=== PATIENT | female | born 1945 | race Caucasian/White ===

== ENCOUNTER 2018-09-14 16:54 | Inpatient (IN) ==
[2018-09-14] MEDS ORDERED: SODIUM CHLORIDE 0.9% 500 ML IV SCH (17:15)
--- NOTE | 2018-09-14 17:46 | Emergency Department Note ---
Entered by Bina Arce acting as a scribe for Hill Mistry MD History of Present Illness General Chief complaint: Referred by Doctor Stated complaint: DR SENT OVER, NEEDS EKG Time Seen by Provider: 09/14/18 17:01 Source: patient and family Mode of arrival: ambulatory Limitations: no limitations History of Present Illness Onset (ago): day(s) 3 Location: head Radiation: non-radiation Pain Consistency: + constant Maximum Pain Intensity: 2 Relieved By: + none Exacerbated By: + none Associated symptoms: + other (-urinary symptoms, -melena, -hematochezia, - tinnitus); no weakness (or numbness) Treatments prior to arrival: none The patient is a 73 year old male who presents to the ED with complaints of weakness. She is accompanied by her daughter who is visiting the area for the oliday. She states she has no appetite and feels nauseated. She has not vomited. Her daughter took her to an urgent care clinic earlier today and the patient was referred here to the ED for a fast pulse and dizziness. She denies any recent falls or trauma. She denies any urinary symptoms, melena or hematochezia. Her daughter states she has been more confused recently, but the patient denies this. The patient denies any numbness, weakness or tinnitus. The daughter denies any changes in the patients home. Home Medications Home Medications Medication Instructions Recorded Confirmed Type calcium carbonate [Tums] 200 mg PO TID PRN 09/14/18 09/14/18 History ketorolac 1 drp OPR BID 09/14/18 09/14/18 History multivitamin 1 tab PO QAM 09/14/18 09/14/18 History naproxen sodium [Aleve] 220 mg PO BID PRN 09/14/18 09/14/18 History prednisolone acetate 1 drp OPHTHALMIC (EYE) .QID UD 09/14/18 09/14/18 History Allergies Allergy/AdvReac Type Severity Reaction Status Date / Time Sulfa (Sulfonamide Allergy Unknown Verified 09/14/18 17:37 Antibiotics) Past Med/Surg History Surgical History History of cataract removal with insertion of prosthetic lens Social History Feels Safe at Home: Yes Smoking Status: Current every day smoker Review of Systems See HPI for pertinent positives & negatives. and A total of 10 systems reviewed and were otherwise negative Physical Exam Vital Signs Vital Signs - 24 hr 09/14/18 16:56 09/14/18 17:30 09/14/18 17:38 Temperature 36.8 C Temperature Source Oral Sepsis Recent Fever Within 48 Hours No Sepsis Action Taken by Nursing No Action Required Pulse Rate 112 H 111 H 111 H Pulse Rate from SpO2 Sensor 102 H 98 H Pulse Rhythm Respiratory Rate 18 24 24 Blood Pressure 115/70 142/75 H Blood Pressure Mean 85 97 Pulse Oximetry 96 97 97 Oxygen Delivery Method Room Air 09/14/18 17:49 09/14/18 18:00 09/14/18 18:01 Temperature Temperature Source Sepsis Recent Fever Within 48 Hours Sepsis Action Taken by Nursing Pulse Rate 103 H 103 H 105 H Pulse Rate from SpO2 Sensor 105 H 104 H Pulse Rhythm Regular Respiratory Rate 20 22 21 Blood Pressure 139/72 Blood Pressure Mean 94 Pulse Oximetry 95 96 93 Oxygen Delivery Method Room Air 09/14/18 18:30 09/14/18 18:31 09/14/18 19:00 Temperature Temperature Source Sepsis Recent Fever Within 48 Hours Sepsis Action Taken by Nursing Pulse Rate 107 H 105 H 107 H Pulse Rate from SpO2 Sensor 109 H 105 H 107 H Pulse Rhythm Respiratory Rate 31 H 24 22 Blood Pressure 144/84 H 175/97 H Blood Pressure Mean 104 123 Pulse Oximetry 95 96 97 Oxygen Delivery Method 09/14/18 19:01 09/14/18 19:30 09/14/18 19:31 Temperature Temperature Source Sepsis Recent Fever Within 48 Hours Sepsis Action Taken by Nursing Pulse Rate 106 H 107 H 109 H Pulse Rate from SpO2 Sensor 107 H 108 H 107 H Pulse Rhythm Respiratory Rate 31 H 24 25 H Blood Pressure 171/97 H Blood Pressure Mean 121 Pulse Oximetry 95 96 94 Oxygen Delivery Method General: Non-ill appearing slender older female in no acute distress. HEENT: Normal cephalic atraumatic. Pupils are equal round and reactive to light. Extraocular movements are intact. Oropharynx is pink with moist mucous membranes. No swelling of the mouth lips or tongue. Neck: Supple with a midline trachea. No meningeal signs or stiffness, no JVD or bruits. No Stridor. Chest: Clear to auscultation bilaterally. No wheezes or rhonchi. No increased work of breathing. Heart: Mildly tachycardic heart rate, regular rhythm. Abdomen: Soft nontender, nondistended without rebound guarding or rigidity. Extremities: No cyanosis clubbing or edema. No calf tenderness or asymmetry Spine/Back. Non tender to palpation. No CVA tenderness Skin: Good turgor without rashes. Neurologic exam: Patient is awake, alert and oriented x 3. Cranial nerves two through 12 are intact. Motor and sensation are intact and symmetrical throughout. Course 1704: The patient was evaluated in room A2 and a complete history and physical were performed. 1819: I reevaluated the patient. I discussed her results and my recommendation we do a CT scan and she is agreeable with the plan. 1904: I reevaluated the patient. She denies any fever or urinary symptoms. I added a 2nd line on the patient. I discussed my recommendation she remain in the hospital for further evaluation and management and she verbalized complete understanding and agreement. 1913: I discussed the patients case with [facility]. The patient will be further evaluated. Consultations Consultation #1: I discussed the patients [facility] The patient will be further evaluated. Time: 19:14 Administered Medications Discontinued Medications Sodium Chloride (Nss) 500 mls @ 999 mls/hr IV .Q31M LESLY Stop: 09/14/18 17:45 Last Infusion: 09/14/18 18:17 Dose: 0 mls/hr Documented by: [id number] Admin: 09/14/18 17:44 Dose: 999 mls/hr Documented by: [id number] Sodium Chloride (Nss 1000ml) 500 mls @ 999 mls/hr IV .Q31M ONE Stop: 09/14/18 19:01 Last Infusion: 09/14/18 19:12 Dose: 0 mls/hr Documented by: [id number] Admin: 09/14/18 18:38 Dose: 999 mls/hr Documented by: [id number] Medical Decision Making Differential Diagnosis Differential Diagnoses considered include arrhythmia, electrolyte or metabolic abnormality, dehydration, cardiac disease, neurologic disease, PE and infection. Medical Records Attestation: I reviewed the patient's medical records. Home Medications Current Medication List: was personally reviewed by me Laboratory Data Attestation: I reviewed the patient's lab results. Result diagrams: 09/14/18 17:49 09/14/18 17:49 Lab Results 09/14/18 09/14/18 09/14/18 Range/Units 17:49 17:49 17:49 WBC 24.00 H (4.8-10.8) K/uL RBC 4.10 L (4.2-5.4) M/uL Hgb 12.8 (12.0-16.0) g/dL Hct 36.1 L (37-47) % MCV 88.0 (80-100) fL MCH 31.2 (25-34) pg MCHC 35.5 (32-36) g/dL RDW Std Deviation 45.8 (36.4-46.3) fL RDW Coeff of Amanda 14.1 (11.5-14.5) % Plt Count (130-400) K/uL Immature Gran % (Auto) 0.9 % Neut % (Auto) 90.2 % Lymph % (Auto) 2.7 % [place] % (Auto) 6.1 % Eos % (Auto) 0.0 % Baso % (Auto) 0.1 % Immature Gran # (Auto) 0.21 H (0.00-0.02) K/uL Neut # (Auto) 21.66 H (1.4-6.5) K/uL Lymph # (Auto) 0.64 L (1.2-3.4) K/uL [place] # (Auto) 1.46 H (0.11-0.59) K/uL Eos # (Auto) 0.00 (0-0.5) K/uL Baso # (Auto) 0.03 (0-0.2) K/uL D-Dimer 1170 H* (0-500) ug/L FEU Sodium 128 L (136-145) mmol/L Potassium 3.5 (3.5-5.1) mmol/L Chloride 93 L (98-107) mmol/L Carbon Dioxide 26 (21-32) mmol/L Anion Gap 9.0 (3-11) BUN 52 H (7-18) mg/dl Creatinine 1.73 H (0.6-1.2) mg/dl Est Cr Clr Drug Dosing Not Reportable Est GFR ( Amer) 33.8 Est GFR (Non-Af Amer) 29.2 BUN/Creatinine Ratio 29.9 H (10-20) Glucose 82 (70-99) mg/dl Calcium 11.0 H (8.5-10.1) mg/dl Total Bilirubin 1.2 H (0.2-1) mg/dl AST 26 (15-37) U/L ALT 31 (12-78) U/L Alkaline Phosphatase 248 H (45-117) U/L Troponin I 0.250 H* (0-0.045) ng/ml Total Protein 6.5 (6.4-8.2) gm/dl Albumin 2.1 L (3.4-5.0) gm/dl Globulin 4.4 H (2.5-4.0) gm/dl Albumin/Globulin Ratio 0.5 L (0.9-2) Lipase 66 L (73-393) U/L TSH 0.818 (0.300-4.500) uIu/ml Urine Color Urine Appearance (Clear) Urine pH (4.5-7.5) Ur Specific [place] (1.000-1.030) Urine Protein (Negative) Urine Glucose (UA) (Negative) Urine Ketones (Negative) Urine Blood (Negative) Urine Nitrite (Negative) Urine Bilirubin (Negative) Urine Urobilinogen (Negative) Ur Leukocyte Esterase (Negative) Urine WBC (Auto) (0-5) /hpf Urine RBC (Auto) (0-4) /hpf U Hyaline Cast (Auto) (0-5) /lpf U Epithel Cells (Auto) (0-5) /lpf Urine Bacteria (Auto) (Negative) 09/14/18 Range/Units 19:17 WBC (4.8-10.8) K/uL RBC (4.2-5.4) M/uL Hgb (12.0-16.0) g/dL Hct (37-47) % MCV (80-100) fL MCH (25-34) pg MCHC (32-36) g/dL RDW Std Deviation (36.4-46.3) fL RDW Coeff of Amanda (11.5-14.5) % Plt Count (130-400) K/uL Immature Gran % (Auto) % Neut % (Auto) % Lymph % (Auto) % [place] % (Auto) % Eos % (Auto) % Baso % (Auto) % Immature Gran # (Auto) (0.00-0.02) K/uL Neut # (Auto) (1.4-6.5) K/uL Lymph # (Auto) (1.2-3.4) K/uL [place] # (Auto) (0.11-0.59) K/uL Eos # (Auto) (0-0.5) K/uL Baso # (Auto) (0-0.2) K/uL D-Dimer (0-500) ug/L FEU Sodium (136-145) mmol/L Potassium (3.5-5.1) mmol/L Chloride (98-107) mmol/L Carbon Dioxide (21-32) mmol/L Anion Gap (3-11) BUN (7-18) mg/dl Creatinine (0.6-1.2) mg/dl Est Cr Clr Drug Dosing Est GFR ( Amer) Est GFR (Non-Af Amer) BUN/Creatinine Ratio (10-20) Glucose (70-99) mg/dl Calcium (8.5-10.1) mg/dl Total Bilirubin (0.2-1) mg/dl AST (15-37) U/L ALT (12-78) U/L Alkaline Phosphatase (45-117) U/L Troponin I (0-0.045) ng/ml Total Protein (6.4-8.2) gm/dl Albumin (3.4-5.0) gm/dl Globulin (2.5-4.0) gm/dl Albumin/Globulin Ratio (0.9-2) Lipase (73-393) U/L TSH (0.300-4.500) uIu/ml Urine Color Yellow Urine Appearance Turbid A (Clear) Urine pH 5.5 (4.5-7.5) Ur Specific [place] 1.014 (1.000-1.030) Urine Protein 1+ H (Negative) Urine Glucose (UA) Negative (Negative) Urine Ketones Trace H (Negative) Urine Blood 3+ H (Negative) Urine Nitrite Positive A (Negative) Urine Bilirubin Negative (Negative) Urine Urobilinogen Negative (Negative) Ur Leukocyte Esterase 3+ H (Negative) Urine WBC (Auto) >30 H (0-5) /hpf Urine RBC (Auto) >30 H (0-4) /hpf U Hyaline Cast (Auto) 5-10 H (0-5) /lpf U Epithel Cells (Auto) >30 H (0-5) /lpf Urine Bacteria (Auto) 1+ H (Negative) Imaging Data Radiologist's Impression: Radiology results as stated below per my review and the radiologist's interpretation: XR chest 1V portable HISTORY: 73 years-old Female Chest Pain acute atypical chest pain COMPARISON: None available TECHNIQUE: Portable AP view of the chest FINDINGS: Cardiomediastinal and hilar silhouettes are within normal limits. Calcification of the thoracic aortic arch. Subsegmental left greater then right bibasilar opacities. No pneumothorax, pleural effusion or overt pulmonary edema. Degenerative changes of the shoulders and spine. Suggested small hiatal hernia. IMPRESSION: Left greater than right subsegmental bibasilar opacities favor atelectasis. The above report was generated using voice recognition software. It may contain grammatical, syntax or spelling errors. Electronically signed by: Darin Gan M.D. 09/14/2018 6:12 PM ECG Data Attestation: I personally reviewed and interpreted this ECG as follows: Indication: weakness Rate (beats per minute): 108 Rhythm: sinus tachycardia Findings: no acute ischemic change and no ectopy Comparison ECG Date: no prior available Blood Pressure Blood Pressure Findings: Elevated blood pressure Blood Pressure Disposition: further management by hospitalist Head Trauma GCS Score: 15 MDM Narrative This patient comes in as described above. She was placed in room A2. She was sent over from the urgent care center after having a rapid heart rate in the low 100s. She has been not feeling hungry and may have had some dizziness. Her daughter thinks she may be mildly confused or forgetful at times. She has had no fall or trauma she voices no complaints. She had no chest pain shortness of breath or syncope. IV access established EKG multiple blood testing was obtained she was hydrated with a normal saline bolus. Her EKG shows sinus tachycardia 108 there is no ischemic changes or ectopy seen. Reassessed freq uently and is remained stable. Her d-dimer did come back elevated at just over thousand. In light of that I did order a CTA of the chest however her BUN/creatinine subsequently came back significantly elevated at 52 and 1.7. She had been hydrated with a 500 cc normal saline bolus I gave her additional 500 cc normal saline bolus. Additionally her troponin came back elevated 0.24 and her white count but came back elevated 24,000. The white count was certainly unexpected finding she has nothing to suggest infection on exam or by history she denies urinary symptoms, abdominal pain, cough, joint aches, skin lesions, GI symptoms. In light of the elevated white count, I did have blood cultures as well as a lactic acid and we establish a second IV. I canceled the CTA of her chest. Her sodium was also low at 128. I do not have a baseline for comparison. I did tell him to keep the CAT scan of her head. Again despite all these abnormalities, she looks great but I do think she needs to come in the hospital to further evaluate this. I am also waiting for her to give a urine sample as well to rule out urinary symptoms. I have consulted Dr. Feldman to see her in the ER for these measures. Impression & Plan Dizziness, Elevated troponin, Renal insufficiency, Hyponatremia Discharge Plan Visit Data Chief Complaint: Referred by Doctor Stated Complaint: DR SENT OVER, NEEDS EKG ED Provider: Hill Mistry Discharge Problem: Dizziness, Elevated troponin, Renal insufficiency, Hyponatremia Patient Disposition: Being Evaluated by Hospitalist Forms Stand Alone Forms: My [facility] Prescriptions Prescriptions: No Action multivitamin Tablet 1 tab PO QAM RF: 0 ketorolac 0.5 % Drops 1 drp OPR BID RF: 0 prednisolone acetate 1 % Drops,Suspension 1 drp OPHTHALMIC (EYE) .QID UD RF: 0 naproxen sodium [Aleve] 220 mg Tablet 220 mg PO BID PRN (Reason: Pain) RF: 0 calcium carbonate [Tums] 200 mg calcium (500 mg) Tablet,Chewable 200 mg PO TID PRN (Reason: Gi Upset) RF: 0 Referrals Referrals: Ruslan Barr [Primary Care Provider] - The scribe's documentation has been prepared under my direction and personally reviewed by me in its entirety. I confirm that the note above accurately reflects all work, treatment, procedures, and medical decision making performed by me.
--- NOTE | 2018-09-14 18:15 | XRay Report ---
XR chest 1V portable HISTORY: 73 years-old Female Chest Pain acute atypical chest pain COMPARISON: None available TECHNIQUE: Portable AP view of the chest FINDINGS: Cardiomediastinal and hilar silhouettes are within normal limits. Calcification of the thoracic aorti c arch. Subsegmental left greater then right bibasilar opacities. No pneumothorax, pleural effusion o r overt pulmonary edema. Degenerative changes of the shoulders and spine. Suggested small hiatal luna ia. IMPRESSION: Left greater than right subsegmental bibasilar opacities favor atelectasis. The above report was generated using voice recognition software. It may contain grammatical, syntax o r spelling errors. Electronically signed by: Darin Gan M.D. 09/14/2018 6:12 PM
[2018-09-14 18:21] LABS: D Dimer 1170 ug/L FEU (0-500)
[2018-09-14 18:25] LABS: Alanine Aminotransferase 31 U/L (12-78); Albumin Level 2.1 gm/dl (3.4-5.0); Aspartate Aminotransferase 26 U/L (15-37); BUN Creatinine Ratio 29.9 (10-20); Blood Urea Nitrogen 52 mg/dl (7-18); Carbon Dioxide 26 mmol/L (21-32); Chloride 93 mmol/L (98-107); Est GFR (African American) 33.8; Est GFR (Non-African American) 29.2; Glucose 82 mg/dl (70-99); Potassium 3.5 mmol/L (3.5-5.1); Sodium 128 mmol/L (136-145)
[2018-09-14] MEDS ORDERED: SODIUM CHLORIDE 0.9% 1000ML 500 ML IV ONE (18:31)
[2018-09-14 18:41] LABS: Hematocrit (blood only) 36.1 % (37-47); Hemoglobin 12.8 g/dL (12.0-16.0); Mean Corpuscular Hgb Conc 35.5 g/dL (32-36); RDW Coefficient of Variation 14.1 % (11.5-14.5); RDW Standard Deviation 45.8 fL (36.4-46.3)
[2018-09-14 18:42] LABS: Basophils # (auto) 0.03 K/uL (0-0.2); Basophils % (auto) 0.1 %; Immature Granulocytes # (auto) 0.21 K/uL (0.00-0.02); Immature Granulocytes % (auto) 0.9 %; Lymphocytes # (auto) 0.64 K/uL (1.2-3.4); Lymphocytes % (auto) 2.7 %; Monocytes # (auto) 1.46 K/uL (0.11-0.59); Monocytes % (auto) 6.1 %; Neutrophils # (auto) 21.66 K/uL (1.4-6.5); Neutrophils % (auto) 90.2 %
[2018-09-14 18:46] LABS: Albumin Globulin Ratio 0.5 (0.9-2); Alkaline Phosphatase 248 U/L (45-117); Bilirubin,Total 1.2 mg/dl (0.2-1); Globulin 4.4 gm/dl (2.5-4.0); Total Protein 6.5 gm/dl (6.4-8.2)
[2018-09-14 19:26] LABS: Appearance Urine Turbid (Clear); Bacteria Urine Automated 1+ (Negative); Bilirubin Urine Negative (Negative); Blood Urine 3+ (Negative); Color Urine Yellow; Epithelial Cell Urine Auto >30 /lpf (0-5); Glucose Urine UA Negative (Negative); Ketones Urine Trace (Negative); Leukocyte Esterase Urine 3+ (Negative); Nitrite Urine Positive (Negative); Protein Urine 1+ (Negative); RBC Urine Automated >30 /hpf (0-4); Specific Gravity Urine 1.014 (1.000-1.030); Urobilinogen Urine Negative (Negative); WBC Urine Automated >30 /hpf (0-5); pH Urine 5.5 (4.5-7.5)
[2018-09-14] MEDS ORDERED: POTASSIUM CHLORIDE 20 MEQ TABCR PO STA (19:29)
[2018-09-14 19:53] LABS: Partial Thromboplastin Ratio 1.2; Partial Thromboplastin Time 31.2 Seconds (21.0-31.0)
--- NOTE | 2018-09-14 20:11 | History & Physical Report ---
Date of Service September 14, 2018 Assessment & Plan (1) Sepsis: Secondary to complicated UTI Hyponatremia, hypercalcemia, ARF secondary to clinical dehydration Situational hypertension d-dimer, troponin elevation secondary to sepsis Ongoing tobacco abuse Medical telemetry given troponin elevation Cultures, IV Cefepime Careful correction of sodium, hyponatremia work-up Monitor creatinine response to IV fluids Trend troponin, TTE with progression Monitor BP, may need initiation of maintenance agent if with persistent elevation, possible long-standing disease given possible LVH on EKG Nicotine patch DVT prophylaxis. Heparin subcu Full code Patient's daughter requesting updates from providers. Ms. Scarlett Bennett, contact #[phone]. History of Present Illness Primary Care Provider: Ruslan Barr History obtained from patient, family, and records. Medical history significant for ongoing tobacco abuse. Last few days patient noted nausea, poor appetite, dysuria symptoms without abdominal/flank pain. No fever, no chills. No chest pain, S OB, leg swelling. Little confused than usual as per patient's daughter visiting from [place]. Patient noted dizziness symptoms. Patient noted to be tachycardic at the urgent care center. Patient subsequently directed to the ER. 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 Allergies Allergy/AdvReac Type Severity Reaction Status Date / Time Sulfa (Sulfonamide Allergy Unknown Verified 09/14/18 17:37 Antibiotics) Home Medications Home Medications Medication Instructions Recorded Confirmed Type calcium carbonate [Tums] 200 mg PO TID PRN 09/14/18 09/14/18 History ketorolac 1 drp OPR BID 09/14/18 09/14/18 History multivitamin 1 tab PO QAM 09/14/18 09/14/18 History naproxen sodium [Aleve] 220 mg PO BID PRN 09/14/18 09/14/18 History prednisolone acetate 1 drp OPHTHALMIC (EYE) .QID UD 09/14/18 09/14/18 History Past Med/Surg History Surgical History History of cataract removal with insertion of prosthetic lens Social History Preferred Language: Polish Communication Ability: Effective Time Study Analyst Required: No Beliefs That Will Affect Care: None Current Living Situation: Spouse Other Information That Helps Us Care for You: No Feels Safe at Home: Yes Safety Concerns: Feels Safe At This Time Smoking Status: Current every day smoker Tobacco Type: cigarettes Cigarettes Per Day: 4-5 Do You Dip or Chew Tobacco: No Second Hand Exposure: Yes Tobacco Cessation Education Requested by Patient: Yes Hx Alcohol Use: Yes Hx Substance Use: No Review of Systems Review of Systems: As per HPI, intentional weight loss, all 10 systems reviewed, all other ROS negative Physical Exam Physical Exam: GENERAL: Comfortable, looks younger for stated age, no respiratory distress SKIN: Normal color, warm HEENT: [place] palpebral conjunctivae, no ptosis, dry buccal mucosa NECK : Supple, no tenderness CHEST : CTA, no tenderness HEART : Tachycardic, no obvious murmurs ABDOMEN: Some distention, nontender EXTREMITIES : No LE swelling/tenderness, no other conspicuous deformities noted NEUROLOGIC : Coherent, no facial asymmetry, no other gross focality Results & Data Vital Signs (Past 12 Hours) Vital Signs Temp Pulse Resp BP Pulse Ox 09/14/18 19:31 109 H 25 H 94 09/14/18 19:30 107 H 24 171/97 H 96 09/14/18 19:01 106 H 31 H 95 09/14/18 19:00 107 H 22 175/97 H 97 09/14/18 18:31 105 H 24 96 09/14/18 18:30 107 H 31 H 144/84 H 95 09/14/18 18:01 105 H 21 93 09/14/18 18:00 103 H 22 139/72 96 09/14/18 17:49 103 H 20 95 09/14/18 17:38 111 H 24 97 09/14/18 17:30 111 H 24 142/75 H 97 09/14/18 16:56 36.8 C 112 H 18 115/70 96 Laboratory Results Laboratory Results WBC 24.00 K/uL (4.8-10.8) H 09/14/18 17:49 RBC 4.10 M/uL (4.2-5.4) L 09/14/18 17:49 Hgb 12.8 g/dL (12.0-16.0) 09/14/18 17:49 Hct 36.1 % (37-47) L 09/14/18 17:49 MCV 88.0 fL (80-100) 09/14/18 17:49 MCH 31.2 pg (25-34) 09/14/18 17:49 MCHC 35.5 g/dL (32-36) 09/14/18 17:49 RDW Std Deviation 45.8 fL (36.4-46.3) 09/14/18 17:49 RDW Coeff of Amanda 14.1 % (11.5-14.5) 09/14/18 17:49 Plt Count K/uL (130-400) 09/14/18 17:49 Immature Gran % (Auto) 0.9 % 09/14/18 17:49 Neut % (Auto) 90.2 % 09/14/18 17:49 Lymph % (Auto) 2.7 % 09/14/18 17:49 [place] % (Auto) 6.1 % 09/14/18 17:49 Eos % (Auto) 0.0 % 09/14/18 17:49 Baso % (Auto) 0.1 % 09/14/18 17:49 Immature Gran # (Auto) 0.21 K/uL (0.00-0.02) H 09/14/18 17:49 Neut # (Auto) 21.66 K/uL (1.4-6.5) H 09/14/18 17:49 Lymph # (Auto) 0.64 K/uL (1.2-3.4) L 09/14/18 17:49 [place] # (Auto) 1.46 K/uL (0.11-0.59) H 09/14/18 17:49 Eos # (Auto) 0.00 K/uL (0-0.5) 09/14/18 17:49 Baso # (Auto) 0.03 K/uL (0-0.2) 09/14/18 17:49 APTT 31.2 Seconds (21.0-31.0) H 09/14/18 17:49 PTT Ratio 1.2 09/14/18 17:49 D-Dimer 1170 ug/L FEU (0-500) H* 09/14/18 17:49 Sodium 128 mmol/L (136-145) L 09/14/18 17:49 Potassium 3.5 mmol/L (3.5-5.1) 09/14/18 17:49 Chloride 93 mmol/L (98-107) L 09/14/18 17:49 Carbon Dioxide 26 mmol/L (21-32) 09/14/18 17:49 Anion Gap 9.0 (3-11) 09/14/18 17:49 BUN 52 mg/dl (7-18) H 09/14/18 17:49 Creatinine 1.73 mg/dl (0.6-1.2) H 09/14/18 17:49 Est Cr Clr Drug Dosing Not Reportable 09/14/18 17:49 Est GFR ( Amer) 33.8 09/14/18 17:49 Est GFR (Non-Af Amer) 29.2 09/14/18 17:49 BUN/Creatinine Ratio 29.9 (10-20) H 09/14/18 17:49 Glucose 82 mg/dl (70-99) 09/14/18 17:49 Osmolality 280 mOsm/kg (280-300) 09/14/18 17:49 Calcium 11.0 mg/dl (8.5-10.1) H 09/14/18 17:49 Phosphorus 2.2 mg/dl (2.5-4.9) L 09/14/18 17:49 Total Bilirubin 1.2 mg/dl (0.2-1) H 09/14/18 17:49 AST 26 U/L (15-37) 09/14/18 17:49 ALT 31 U/L (12-78) 09/14/18 17:49 Alkaline Phosphatase 248 U/L (45-117) H 09/14/18 17:49 Troponin I 0.250 ng/ml (0-0.045) H* 09/14/18 17:49 Total Protein 6.5 gm/dl (6.4-8.2) 09/14/18 17:49 Albumin 2.1 gm/dl (3.4-5.0) L 09/14/18 17:49 Globulin 4.4 gm/dl (2.5-4.0) H 09/14/18 17:49 Albumin/Globulin Ratio 0.5 (0.9-2) L 09/14/18 17:49 Lipase 66 U/L (73-393) L 09/14/18 17:49 TSH 0.818 uIu/ml (0.300-4.500) 09/14/18 17:49 Urine Color Yellow 09/14/18 19:17 Urine Appearance Turbid (Clear) A 09/14/18 19:17 Urine pH 5.5 (4.5-7.5) 09/14/18 19:17 Ur Specific [place] 1.014 (1.000-1.030) 09/14/18 19:17 Urine Protein 1+ (Negative) H 09/14/18 19:17 Urine Glucose (UA) Negative (Negative) 09/14/18 19:17 Urine Ketones Trace (Negative) H 09/14/18 19:17 Urine Blood 3+ (Negative) H 09/14/18 19:17 Urine Nitrite Positive (Negative) A 09/14/18 19:17 Urine Bilirubin Negative (Negative) 09/14/18 19:17 Urine Urobilinogen Negative (Negative) 09/14/18 19:17 Ur Leukocyte Esterase 3+ (Negative) H 09/14/18 19:17 Urine WBC (Auto) >30 /hpf (0-5) H 09/14/18 19:17 Urine RBC (Auto) >30 /hpf (0-4) H 09/14/18 19:17 U Hyaline Cast (Auto) 5-10 /lpf (0-5) H 09/14/18 19:17 U Epithel Cells (Auto) >30 /lpf (0-5) H 09/14/18 19:17 Urine Bacteria (Auto) 1+ (Negative) H 09/14/18 19:17 Diagnostic Findings Chest x-ray showed left greater than right subsegmental bibasilar opacities favor atelectasis. EKG as per my interpretation : Rate 110, sinus tachycardia, normal axis, LVH CT head: No acute intracranial hemorrhage, midline shift, intracranial mass, hydrocephalus, territorial ischemia or abnormal extra-axial collection. Patchy white matter hypodensities suggest chronic microvascular ischemic disease. 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 Cerebral vascular calcifications noted. The calvarium is intact. The paranasal sinuses, mastoid air cells, and middle ear cavities are clear.
[2018-09-14] MEDS ORDERED: CEFEPIME 2,000 MG in SYRINGE 7.5 ML IV ONE ×2 (20:30→21:30)
--- NOTE | 2018-09-14 20:30 | CT Scan Report ---
CT head/brain wo con CLINICAL HISTORY: 73 years-old Female with dizziness. Acute dizziness TECHNIQUE: Multiple axial CT images of the head were obtained without contrast. A dose lowering tech nique was utilized adhering to the principles of ALARA. CT DOSE: 537.48 mGy.cm COMPARISON: None. FINDINGS: No acute intracranial hemorrhage, midline shift, intracranial mass, hydrocephalus, territorial ischem ia or abnormal extra-axial collection. Patchy white matter hypodensities suggest chronic microvascula r ischemic disease. Encephalomalacia about the left temporal lobe with ex vacuo ventriculomegaly of t he temporal horn left lateral ventricle secondary to remote infarction. Cerebral vascular calcificati ons noted. The calvarium is intact. The paranasal sinuses, mastoid air cells, and middle ear cavities are clear . IMPRESSION: 1. No acute intracranial abnormality. 2. Chronic appearing findings as above. The above report was generated using voice recognition software. It may contain grammatical, syntax o r spelling errors. Electronically signed by: Darin Gan M.D. 09/14/2018 8:28 PM
[2018-09-14] MEDS ORDERED: NITROGLYCERIN SL 0.4 MG/TAB TAB SL PRN (21:11)
[2018-09-14] MEDS ORDERED: ACETAMINOPHEN 325 MG TAB PO PRN (21:11)
[2018-09-14] MEDS ORDERED: OXYCODONE HCL IR 5 MG TAB (IMMEDIATE RELEASE) PO PRN (21:11)
[2018-09-14] MEDS ORDERED: PROMETHAZINE HCL 12.5 MG in SODIUM CHLORIDE 0.9% 50 ML IV PRN (21:11)
[2018-09-14] MEDS ORDERED: CEFEPIME CONSULT ACTIVE PRN (21:13)
[2018-09-14] MEDS ORDERED: POTASSIUM CHLORIDE 10 MEQ TABCR PO STA (21:23)
[2018-09-14] MEDS ORDERED: PATIENT'S HEIGHT AND/OR WEIGHT NEEDED SCH (21:30)
[2018-09-14 22:08] LABS: INR 1.2 (0.9-1.1); Prothrombin Time 11.7 Seconds (9.0-12.0)
[2018-09-14] MEDS: KETOROLAC 0.5% OP SOLN 5 ML BTL OPR SCH (22:31)
[2018-09-14] MEDS: prednisoLONE acetate 1% OP SUSP 5 ML BTL OP SCH (22:32)
[2018-09-14] MEDS: HEPARIN SOD 5,000 UNIT/0.5 ML VIAL SQ SCH (23:11)
[2018-09-15 01:01] LABS: Albumin Level 1.8 gm/dl (3.4-5.0); BUN Creatinine Ratio 34.6 (10-20); Bilirubin Direct 0.5 mg/dl (0-0.2); Calcium 10.2 mg/dl (8.5-10.1); Creatinine Clr Calc Pharmacy 29.4 ml/min; Est GFR (African American) 46.1; Est GFR (Non-African American) 39.8; Potassium 3.8 mmol/L (3.5-5.1)
[2018-09-15 01:12] LABS: Bilirubin,Total 1.1 mg/dl (0.2-1); Total Protein 5.8 gm/dl (6.4-8.2); Troponin I 0.331 ng/ml (0-0.045)
[2018-09-15] MEDS ORDERED: ALBUMIN 25% 50 ML IV ONE (01:25)
[2018-09-15] MEDS ORDERED: DEXTROSE 50% 50 ML SYRINGE IV ONE (01:25)
[2018-09-15] MEDS ORDERED: POTASSIUM CHLORIDE 20 MEQ TABCR PO STA ×2 (01:25→21:17)
[2018-09-15] MEDS: HEPARIN SOD 5,000 UNIT/0.5 ML VIAL SQ SCH ×3 (05:27→21:55)
[2018-09-15 05:42] LABS: Hematocrit (blood only) 35.1 % (37-47); Hemoglobin 12.3 g/dL (12.0-16.0); Mean Corpuscular Volume 89.8 fL (80-100); Mean Platelet Volume 10.2 fL (7.4-10.4); Platelet Count 202 K/uL (130-400); RDW Coefficient of Variation 14.3 % (11.5-14.5); Red Blood Count 3.91 M/uL (4.2-5.4)
[2018-09-15 06:01] LABS: Basophils # (auto) 0.02 K/uL (0-0.2); Basophils % (auto) 0.1 %; Immature Granulocytes % (auto) 0.8 %; Lymphocytes % (auto) 2.5 %; Monocytes % (auto) 5.9 %; Neutrophils # (auto) 21.38 K/uL (1.4-6.5); Neutrophils % (auto) 90.7 %
[2018-09-15 06:15] LABS: BUN Creatinine Ratio 36.5 (10-20); Calcium 10.2 mg/dl (8.5-10.1); Creatinine Clr Calc Pharmacy 32.3 ml/min; Est GFR (African American) 51.6; Est GFR (Non-African American) 44.5; Potassium 4.4 mmol/L (3.5-5.1)
[2018-09-15] MEDS ORDERED: SODIUM CHLORIDE 0.9% 1000ML 1,000 ML IV ONE (07:48)
[2018-09-15] MEDS: prednisoLONE acetate 1% OP SUSP 5 ML BTL OP SCH ×4 (08:07→21:41)
[2018-09-15] MEDS: NICOTINE 7 MG/24 HR TDSY TD SCH ×2 (08:07→08:12)
[2018-09-15] MEDS: KETOROLAC 0.5% OP SOLN 5 ML BTL OPR SCH ×2 (08:07→21:41)
[2018-09-15] MEDS: MULTIVITAMIN TAB PO SCH (08:07)
[2018-09-15] MEDS ORDERED: ONDANSETRON INJ 2 MG/ML 2 ML VIAL IV PRN (08:14)
[2018-09-15] MEDS ORDERED: CEFEPIME CONSULT ACTIVE SCH (08:15)
--- NOTE | 2018-09-15 09:22 | Hospitalist Progress Note ---
Date of Service September 15, 2018 Assessment & Plan (1) Sepsis: Secondary to bacteremia and UTI, gram-negative bacilli Afebrile, improved clinically overall Follow-up blood and urine cultures Empiric IV cefepime, IV fluids Monitor closely Hyponatremia On IV NSS Repeat sodium this afternoon ARF secondary to clinical dehydration, sepsis Creatinine improved from 1.3-1.14 Continue IV fluids Monitor closely Situational hypertension Not on blood pressure medication at home Added clonidine 0.1 mg p.o. every 6 hours as needed for systolic BP more than 160 Continue to monitor Elevated d-dimer Not hypoxic, not tachycardic at this time Doppler ultrasound of bilateral legs: No DVTs Noted d-dimer likely secondary to underlying sepsis and UTI troponin elevation secondary to sepsis Denies chest pain or cardiac symptoms EKG no signs of acute ischemia Third level today pending Ongoing tobacco abuse Smoking cessation counseling Nicotine patch DVT prophylaxis. Heparin subcu Full code Subjective Follow-up for encephalopathy, sepsis secondary to UTI Seen sitting up in bed, awake and alert, oriented x2 Answers most questions appropriately Does not recall most events yesterday States she feels improved today overall Has abdominal pain, nausea vomiting, fevers or chills Denies headache, chest pain shortness of breath Denies other symptoms Review of Systems Review of Systems: All systems reviewed & are unremarkable except as noted in HPI & below Physical Exam Physical Exam: General- oriented x2, not in distress, speaks in sentences with no effort or accessory muscle use Head- atraumatic Eyes- PERRL, EOMI, anicteric ENT- oropharynx clear Neck- supple, no JVD, no adenopathy, no thyromegaly; carotids +2/2, no bruits appreciated Lungs- clear to auscultation bilaterally, no rales/wheezes Heart- normal rate, regular rhythm; no murmur, no gallop, no rub appreciated Abdomen- normal bowel sounds, nondistended, soft, nontender, no masses or hepatosplenomegaly No CVA tenderness Extremities- no pretibial edema, no calf tenderness; peripheral pulses intact Neuro- alert, oriented x 2; CN 2-12 grossly intact; motor 5/5 bilaterally;sensation 100% on all extremities; no other gross focal neurologic deficits Skin- warm & dry Results & Data Vital Signs (Past 12 Hours) Vital Signs Temp Pulse Pulse Resp BP Pulse Ox 09/15/18 08:00 102 H 09/15/18 07:16 37.3 C 105 H 16 172/78 H 92 09/15/18 04:00 37.0 C 101 H 20 150/79 H 97 09/15/18 00:26 37.2 C 106 H 20 152/79 H 94 09/15/18 00:00 108 H 09/14/18 21:38 37.4 C 105 H 18 152/75 H 94 Laboratory Results Laboratory Results - last 24 hr 09/14/18 09/14/18 09/14/18 17:49 17:49 17:49 WBC 24.00 H RBC 4.10 L Hgb 12.8 Hct 36.1 L MCV 88.0 MCH 31.2 MCHC 35.5 RDW Std Deviation 45.8 RDW Coeff of Amanda 14.1 Plt Count MPV Immature Gran % (Auto) 0.9 Neut % (Auto) 90.2 Lymph % (Auto) 2.7 [place] % (Auto) 6.1 Eos % (Auto) 0.0 Baso % (Auto) 0.1 Immature Gran # (Auto) 0.21 H Neut # (Auto) 21.66 H Lymph # (Auto) 0.64 L [place] # (Auto) 1.46 H Eos # (Auto) 0.00 Baso # (Auto) 0.03 PT INR APTT PTT Ratio D-Dimer 1170 H* Sodium 128 L Potassium 3.5 Chloride 93 L Carbon Dioxide 26 Anion Gap 9.0 BUN 52 H Creatinine 1.73 H Est Cr Clr Drug Dosing Not Reportable Est GFR ( Amer) 33.8 Est GFR (Non-Af Amer) 29.2 BUN/Creatinine Ratio 29.9 H Glucose 82 POC Glucose Osmolality Lactate Calcium 11.0 H Phosphorus Magnesium Total Bilirubin 1.2 H Direct Bilirubin AST 26 ALT 31 Alkaline Phosphatase 248 H Troponin I 0.250 H* Total Protein 6.5 Albumin 2.1 L Globulin 4.4 H Albumin/Globulin Ratio 0.5 L Lipase 66 L Procalcitonin TSH 0.818 PTH Intact Specimen Hemolysis Urine Color Urine Appearance Urine pH Ur Specific [place] Urine Protein Urine Glucose (UA) Urine Ketones Urine Blood Urine Nitrite Urine Bilirubin Urine Urobilinogen Ur Leukocyte Esterase Urine WBC (Auto) Urine RBC (Auto) U Hyaline Cast (Auto) U Epithel Cells (Auto) Urine Bacteria (Auto) Urine Osmolality Ur Random Sodium 09/14/18 09/14/18 09/14/18 17:49 17:49 17:49 WBC RBC Hgb Hct MCV MCH MCHC RDW Std Deviation RDW Coeff of Amanda Plt Count MPV Immature Gran % (Auto) Neut % (Auto) Lymph % (Auto) [place] % (Auto) Eos % (Auto) Baso % (Auto) Immature Gran # (Auto) Neut # (Auto) Lymph # (Auto) [place] # (Auto) Eos # (Auto) Baso # (Auto) PT INR APTT 31.2 H PTT Ratio 1.2 D-Dimer Sodium Potassium Chloride Carbon Dioxide Anion Gap BUN Creatinine Est Cr Clr Drug Dosing Est GFR ( Amer) Est GFR (Non-Af Amer) BUN/Creatinine Ratio Glucose POC Glucose Osmolality 280 Lactate Calcium Phosphorus Magnesium Total Bilirubin Direct Bilirubin AST ALT Alkaline Phosphatase Troponin I Total Protein Albumin Globulin Albumin/Globulin Ratio Lipase Procalcitonin 1.87 H TSH PTH Intact Specimen Hemolysis Urine Color Urine Appearance Urine pH Ur Specific [place] Urine Protein Urine Glucose (UA) Urine Ketones Urine Blood Urine Nitrite Urine Bilirubin Urine Urobilinogen Ur Leukocyte Esterase Urine WBC (Auto) Urine RBC (Auto) U Hyaline Cast (Auto) U Epithel Cells (Auto) Urine Bacteria (Auto) Urine Osmolality Ur Random Sodium 09/14/18 09/14/18 09/14/18 17:49 17:49 17:49 WBC RBC Hgb Hct MCV MCH MCHC RDW Std Deviation RDW Coeff of Amanda Plt Count MPV Immature Gran % (Auto) Neut % (Auto) Lymph % (Auto) [place] % (Auto) Eos % (Auto) Baso % (Auto) Immature Gran # (Auto) Neut # (Auto) Lymph # (Auto) [place] # (Auto) Eos # (Auto) Baso # (Auto) PT 11.7 INR 1.2 H APTT PTT Ratio D-Dimer Sodium Potassium Chloride Carbon Dioxide Anion Gap BUN Creatinine Est Cr Clr Drug Dosing Est GFR ( Amer) Est GFR (Non-Af Amer) BUN/Creatinine Ratio Glucose POC Glucose Osmolality Lactate Calcium Phosphorus 2.2 L Magnesium 2.0 Total Bilirubin Direct Bilirubin AST ALT Alkaline Phosphatase Troponin I Total Protein Albumin Globulin Albumin/Globulin Ratio Lipase Procalcitonin TSH PTH Intact Specimen Hemolysis Urine Color Urine Appearance Urine pH Ur Specific [place] Urine Protein Urine Glucose (UA) Urine Ketones Urine Blood Urine Nitrite Urine Bilirubin Urine Urobilinogen Ur Leukocyte Esterase Urine WBC (Auto) Urine RBC (Auto) U Hyaline Cast (Auto) U Epithel Cells (Auto) Urine Bacteria (Auto) Urine Osmolality Ur Random Sodium 09/14/18 09/14/18 09/14/18 19:17 20:05 20:05 WBC RBC Hgb Hct MCV MCH MCHC RDW Std Deviation RDW Coeff of Amanda Plt Count MPV Immature Gran % (Auto) Neut % (Auto) Lymph % (Auto) [place] % (Auto) Eos % (Auto) Baso % (Auto) Immature Gran # (Auto) Neut # (Auto) Lymph # (Auto) [place] # (Auto) Eos # (Auto) Baso # (Auto) PT INR APTT PTT Ratio D-Dimer Sodium Potassium Chloride Carbon Dioxide Anion Gap BUN Creatinine Est Cr Clr Drug Dosing Est GFR ( Amer) Est GFR (Non-Af Amer) BUN/Creatinine Ratio Glucose POC Glucose Osmolality Lactate 1.1 Calcium Phosphorus Magnesium Total Bilirubin Direct Bilirubin AST ALT Alkaline Phosphatase Troponin I Total Protein Albumin Globulin Albumin/Globulin Ratio Lipase Procalcitonin TSH PTH Intact 9.7 L Specimen Hemolysis Urine Color Yellow Urine Appearance Turbid A Urine pH 5.5 Ur Specific [place] 1.014 Urine Protein 1+ H Urine Glucose (UA) Negative Urine Ketones Trace H Urine Blood 3+ H Urine Nitrite Positive A Urine Bilirubin Negative Urine Urobilinogen Negative Ur Leukocyte Esterase 3+ H Urine WBC (Auto) >30 H Urine RBC (Auto) >30 H U Hyaline Cast (Auto) 5-10 H U Epithel Cells (Auto) >30 H Urine Bacteria (Auto) 1+ H Urine Osmolality Ur Random Sodium 09/15/18 09/15/18 09/15/18 00:15 02:04 02:04 WBC RBC Hgb Hct MCV MCH MCHC RDW Std Deviation RDW Coeff of Amanda Plt Count MPV Immature Gran % (Auto) Neut % (Auto) Lymph % (Auto) [place] % (Auto) Eos % (Auto) Baso % (Auto) Immature Gran # (Auto) Neut # (Auto) Lymph # (Auto) [place] # (Auto) Eos # (Auto) Baso # (Auto) PT INR APTT PTT Ratio D-Dimer Sodium 132 L Potassium 3.8 Chloride 99 Carbon Dioxide 24 Anion Gap 9.0 BUN 46 H Creatinine 1.34 H D Est Cr Clr Drug Dosing 29.4 Est GFR ( Amer) 46.1 Est GFR (Non-Af Amer) 39.8 BUN/Creatinine Ratio 34.6 H Glucose 69 L POC Glucose Osmolality Lactate Calcium 10.2 H Phosphorus Magnesium Total Bilirubin 1.1 H Direct Bilirubin 0.5 H AST 25 ALT 27 Alkaline Phosphatase 254 H Troponin I 0.331 H* Total Protein 5.8 L Albumin 1.8 L Globulin Albumin/Globulin Ratio Lipase Procalcitonin TSH PTH Intact Specimen Hemolysis Urine Color Urine Appearance Urine pH Ur Specific [place] Urine Protein Urine Glucose (UA) Urine Ketones Urine Blood Urine Nitrite Urine Bilirubin Urine Urobilinogen Ur Leukocyte Esterase Urine WBC (Auto) Urine RBC (Auto) U Hyaline Cast (Auto) U Epithel Cells (Auto) Urine Bacteria (Auto) Urine Osmolality 401 L Ur Random Sodium 23 09/15/18 09/15/18 09/15/18 02:29 05:30 05:30 WBC 23.60 H RBC 3.91 L Hgb 12.3 Hct 35.1 L MCV 89.8 MCH 31.5 MCHC 35.0 RDW Std Deviation 47.0 H RDW Coeff of Amanda 14.3 Plt Count 202 MPV 10.2 Immature Gran % (Auto) 0.8 Neut % (Auto) 90.7 Lymph % (Auto) 2.5 [place] % (Auto) 5.9 Eos % (Auto) 0.0 Baso % (Auto) 0.1 Immature Gran # (Auto) 0.20 H Neut # (Auto) 21.38 H Lymph # (Auto) 0.60 L [place] # (Auto) 1.40 H Eos # (Auto) 0.00 Baso # (Auto) 0.02 PT INR APTT PTT Ratio D-Dimer Sodium 132 L Potassium 4.4 D Chloride 101 Carbon Dioxide 23 Anion Gap 8.0 BUN 44 H Creatinine 1.22 H Est Cr Clr Drug Dosing 32.3 Est GFR ( Amer) 51.6 Est GFR (Non-Af Amer) 44.5 BUN/Creatinine Ratio 36.5 H Glucose 81 POC Glucose 171 H Osmolality Lactate Calcium 10.2 H Phosphorus Magnesium Total Bilirubin Direct Bilirubin AST ALT Alkaline Phosphatase Troponin I Total Protein Albumin Globulin Albumin/Globulin Ratio Lipase Procalcitonin TSH PTH Intact Specimen Hemolysis Urine Color Urine Appearance Urine pH Ur Specific [place] Urine Protein Urine Glucose (UA) Urine Ketones Urine Blood Urine Nitrite Urine Bilirubin Urine Urobilinogen Ur Leukocyte Esterase Urine WBC (Auto) Urine RBC (Auto) U Hyaline Cast (Auto) U Epithel Cells (Auto) Urine Bacteria (Auto) Urine Osmolality Ur Random Sodium 09/15/18 11:47 WBC RBC Hgb Hct MCV MCH MCHC RDW Std Deviation RDW Coeff of Amanda Plt Count MPV Immature Gran % (Auto) Neut % (Auto) Lymph % (Auto) [place] % (Auto) Eos % (Auto) Baso % (Auto) Immature Gran # (Auto) Neut # (Auto) Lymph # (Auto) [place] # (Auto) Eos # (Auto) Baso # (Auto) PT INR APTT PTT Ratio D-Dimer Sodium 135 L Potassium 4.4 Chloride 103 Carbon Dioxide 25 Anion Gap 8.0 BUN 43 H Creatinine 1.14 Est Cr Clr Drug Dosing 33.9 Est GFR ( Amer) 56.0 Est GFR (Non-Af Amer) 48.3 BUN/Creatinine Ratio 38.1 H Glucose 87 POC Glucose Osmolality Lactate Calcium 10.4 H Phosphorus Magnesium Total Bilirubin Direct Bilirubin AST ALT Alkaline Phosphatase Troponin I Total Protein Albumin Globulin Albumin/Globulin Ratio Lipase Procalcitonin TSH PTH Intact Specimen Hemolysis Urine Color Urine Appearance Urine pH Ur Specific [place] Urine Protein Urine Glucose (UA) Urine Ketones Urine Blood Urine Nitrite Urine Bilirubin Urine Urobilinogen Ur Leukocyte Esterase Urine WBC (Auto) Urine RBC (Auto) U Hyaline Cast (Auto) U Epithel Cells (Auto) Urine Bacteria (Auto) Urine Osmolality Ur Random Sodium
--- NOTE | 2018-09-15 10:51 | Ultrasound Report ---
BILATERAL LOWER EXTREMITY VENOUS DOPPLER CLINICAL HISTORY: Bilateral lower extremity weakness. COMPARISON STUDY: No previous studies for comparison. TECHNIQUE: Sonography of the deep venous system of the bilateral lower extremities was performed. Co mpression and augmentation were evaluated. FINDINGS: The bilateral common femoral, superficial femoral and popliteal veins were compressible. A ugmentation was normal. Flow was shown within the deep calf vessels. IMPRESSION: No evidence of deep venous thrombus within the bilateral lower extremities. Electronically signed by: Jesus Mayers M.D. 09/15/2018 10:50 AM
[2018-09-15 12:36] LABS: BUN Creatinine Ratio 38.1 (10-20); Calcium 10.4 mg/dl (8.5-10.1); Creatinine Clr Calc Pharmacy 33.9 ml/min; Est GFR (Non-African American) 48.3; Potassium 4.4 mmol/L (3.5-5.1)
[2018-09-15] MEDS: cloNIDine HCl 0.1 MG TAB PO PRN (16:46)
[2018-09-15 20:12] LABS: BUN Creatinine Ratio 35.1 (10-20); Creatinine Clr Calc Pharmacy 36.2 ml/min; Est GFR (African American) 60.5; Est GFR (Non-African American) 52.2; Potassium 3.9 mmol/L (3.5-5.1)
[2018-09-15] MEDS ORDERED: CEFEPIME 2,000 MG in SYRINGE 7.5 ML IV SCH (21:00)
--- NOTE | 2018-09-15 21:17 | Hospitalist Progress Note ---
Date of Service September 15, 2018 Subjective SBP noted to be 140- 170s the last 24 hours as per RN. PVCs noted on the monitor. Patient comfortable but with episodic confusion. AP Hypertensive urgency (Probable chronic hypertension given LVH on EKG.) PVCs Initiate beta-laura, supplement electrolytes. Will relay to AM provider. Results & Data Vital Signs (Past 12 Hours) Vital Signs Temp Pulse Pulse Resp BP BP Pulse Ox 09/15/18 21:08 38.1 C H 108 H 145/71 H 09/15/18 19:00 38.0 C H 101 H 20 174/100 H 96 09/15/18 16:29 165/87 H 09/15/18 16:00 97 H 09/15/18 15:16 37.2 C 98 H 18 175/84 H 179/95 H 93 09/15/18 11:45 37.2 C 99 H 16 171/76 H 94
[2018-09-15] MEDS ORDERED: NSS + 20MEQ KCL 20 MEQ/1,000 ML BAG IV ONE (21:30)
[2018-09-15] MEDS: METOPROLOL TARTRATE 25 MG TAB PO SCH (21:42)
[2018-09-15 22:44] LABS: Lyme Ab IgG w/WB Rflx Negative (Negative); Lyme Ab IgM w/WB Rflx Negative (Negative)
[2018-09-16] MEDS: HEPARIN SOD 5,000 UNIT/0.5 ML VIAL SQ SCH ×3 (05:23→21:23)
[2018-09-16] MEDS: MULTIVITAMIN TAB PO SCH (08:07)
[2018-09-16] MEDS: prednisoLONE acetate 1% OP SUSP 5 ML BTL OP SCH ×4 (08:07→21:24)
[2018-09-16] MEDS: KETOROLAC 0.5% OP SOLN 5 ML BTL OPR SCH ×2 (08:07→21:24)
[2018-09-16] MEDS: NICOTINE 7 MG/24 HR TDSY TD SCH (08:07)
[2018-09-16] MEDS: METOPROLOL TARTRATE 25 MG TAB PO SCH ×2 (08:07→21:24)
[2018-09-16 11:24] LABS: Hematocrit (blood only) 33.3 % (37-47); Hemoglobin 11.3 g/dL (12.0-16.0); Mean Corpuscular Hgb Conc 33.9 g/dL (32-36); Mean Corpuscular Volume 89.3 fL (80-100); Mean Platelet Volume 10.2 fL (7.4-10.4); Platelet Count 172 K/uL (130-400); RDW Coefficient of Variation 14.8 % (11.5-14.5); RDW Standard Deviation 48.7 fL (36.4-46.3); Red Blood Count 3.73 M/uL (4.2-5.4)
[2018-09-16 11:52] LABS: BUN Creatinine Ratio 37.8 (10-20); Calcium 9.1 mg/dl (8.5-10.1); Est GFR (Non-African American) 74.2; Potassium 4.6 mmol/L (3.5-5.1)
[2018-09-16 11:55] LABS: Basophils # (auto) 0.03 K/uL (0-0.2); Basophils % (auto) 0.2 %; Eosinophils # (auto) 0.01 K/uL (0-0.5); Eosinophils % (auto) 0.1 %; Immature Granulocytes # (auto) 0.26 K/uL (0.00-0.02); Immature Granulocytes % (auto) 1.7 %; Lymphocytes # (auto) 0.72 K/uL (1.2-3.4); Lymphocytes % (auto) 4.7 %; Monocytes # (auto) 1.09 K/uL (0.11-0.59); Monocytes % (auto) 7.1 %; Neutrophils # (auto) 13.29 K/uL (1.4-6.5); Neutrophils % (auto) 86.2 %
--- NOTE | 2018-09-16 17:47 | Hospitalist Progress Note ---
Date of Service September 16, 2018 Assessment & Plan (1) Sepsis: Secondary to bacteremia and UTI, E. coli T-max 38.1, leukocytosis improving to 15 K today Urine culture: Positive for E. coli, sensitive to ceftriaxone Blood cultures: Gram-negative bacilli Gradually improving, mental status improved according to the patient's but not yet quite at baseline monitor fever curve Transition from cefepime to ceftriaxone 2 g IV daily today -antibiotic day #3 Continue gentle IV fluids Hyponatremia Likely hypovolemic Was given IV NSS, sodium improved to 136 Monitor ARF secondary to clinical dehydration, sepsis Creatinine improved from 1.3-1.14 Remains stable Continue gentle IV fluids Monitor closely Hypertension Blood pressure elevated overnight, systolic 170 EKG showing PVCs Metoprolol 12.5 mg p.o. twice daily started Blood pressure improving, heart rate stable Monitor Elevated d-dimer Not hypoxic, not tachycardic at this time Doppler ultrasound of bilateral legs: No DVTs Noted d-dimer likely secondary to underlying sepsis and UTI troponin elevation Likely secondary to secondary to sepsis Denies chest pain or cardiac symptoms EKG no signs of acute ischemia Troponin trended down from 0.25 to 0.13 will order an echocardiogram to rule out wall motion abnormalities Ongoing tobacco abuse Smoking cessation counseling Nicotine patch DVT prophylaxis. Heparin subcu Full code Case discussed with patient and her in detail All questions answered They are comfortable agreeable with plan of care Subjective Follow-up for sepsis, gram-negative bacilli bacteremia, UTI Seen resting in bed, patient's at the bedside Alert, oriented x3, not in distress, pleasant States she is having nausea and is still weak today Denies abdominal pain, dysuria,chills No cough, shortness of breath, headache, diarrhea Would like to advance her diet No other symptoms Review of Systems Review of Systems: All systems reviewed & are unremarkable except as noted in HPI & below Physical Exam Physical Exam: General- oriented x 3, not in distress, speaks in sentences with no effort or accessory muscle use Eyes- anicteric Neck- no JVD Lungs- clear BS, no crackles or wheezing bilaterally Heart- normal rate, regular rhythm; no murmurs Abdomen- normal bowel sounds, nondistended, soft, nontender No CVA tenderness Extremities- no pretibial edema, no calf tenderness Neuro- alert, oriented x 3; no gross focal neurologic deficits Skin- warm & dry Results & Data Vital Signs (Past 12 Hours) Vital Signs Temp Pulse Pulse Resp BP BP Pulse Ox 09/16/18 15:34 37.5 C 96 H 18 115/64 94 09/16/18 11:42 36.8 C 77 20 134/77 93 09/16/18 08:00 82 09/16/18 07:50 36.5 C 80 18 162/83 H 96 Laboratory Results Laboratory Results - last 24 hr 09/14/18 09/15/18 09/15/18 17:49 19:39 19:39 WBC RBC Hgb Hct MCV MCH MCHC RDW Std Deviation RDW Coeff of Amanda Plt Count MPV Immature Gran % (Auto) Neut % (Auto) Lymph % (Auto) [place] % (Auto) Eos % (Auto) Baso % (Auto) Immature Gran # (Auto) Neut # (Auto) Lymph # (Auto) [place] # (Auto) Eos # (Auto) Baso # (Auto) Sodium 134 L Potassium 3.9 Chloride 100 Carbon Dioxide 26 Anion Gap 7.0 BUN 38 H Creatinine 1.07 Est Cr Clr Drug Dosing 36.2 Est GFR ( Amer) 60.5 Est GFR (Non-Af Amer) 52.2 BUN/Creatinine Ratio 35.1 H Glucose 136 H Calcium 10.0 Magnesium 2.1 Lyme Disease IgG Ab Negative Lyme Disease IgM Ab Negative 09/16/18 09/16/18 11:05 11:05 WBC 15.40 H RBC 3.73 L Hgb 11.3 L Hct 33.3 L MCV 89.3 MCH 30.3 MCHC 33.9 RDW Std Deviation 48.7 H RDW Coeff of Amanda 14.8 H Plt Count 172 MPV 10.2 Immature Gran % (Auto) 1.7 Neut % (Auto) 86.2 Lymph % (Auto) 4.7 [place] % (Auto) 7.1 Eos % (Auto) 0.1 Baso % (Auto) 0.2 Immature Gran # (Auto) 0.26 H Neut # (Auto) 13.29 H Lymph # (Auto) 0.72 L [place] # (Auto) 1.09 H Eos # (Auto) 0.01 Baso # (Auto) 0.03 Sodium 136 Potassium 4.6 D Chloride 106 Carbon Dioxide 23 Anion Gap 7.0 BUN 30 H Creatinine 0.80 Est Cr Clr Drug Dosing 49.0 Est GFR ( Amer) 86.0 Est GFR (Non-Af Amer) 74.2 BUN/Creatinine Ratio 37.8 H Glucose 107 H Calcium 9.1 Magnesium Lyme Disease IgG Ab Lyme Disease IgM Ab
[2018-09-16] MEDS: SODIUM CHLORIDE 0.9% 1000ML 1,000 ML IV SCH (18:07)
[2018-09-16] MEDS: cefTRIAXone SODIUM 2,000 MG in DEXTROSE 5% 50 ML IV SCH (18:55)
[2018-09-17] MEDS: cloNIDine HCl 0.1 MG TAB PO PRN (01:27)
[2018-09-17] MEDS: HEPARIN SOD 5,000 UNIT/0.5 ML VIAL SQ SCH ×3 (05:04→22:32)
[2018-09-17 05:49] LABS: Hematocrit (blood only) 34.3 % (37-47); Hemoglobin 11.6 g/dL (12.0-16.0); Mean Corpuscular Hgb Conc 33.8 g/dL (32-36); Mean Platelet Volume 10.2 fL (7.4-10.4); Platelet Count 190 K/uL (130-400); RDW Coefficient of Variation 14.8 % (11.5-14.5); RDW Standard Deviation 50.2 fL (36.4-46.3); Red Blood Count 3.73 M/uL (4.2-5.4); White Blood Count 12.97 K/uL (4.8-10.8)
[2018-09-17] MEDS: prednisoLONE acetate 1% OP SUSP 5 ML BTL OP SCH ×4 (07:43→20:30)
[2018-09-17] MEDS: KETOROLAC 0.5% OP SOLN 5 ML BTL OPR SCH ×2 (07:43→20:21)
[2018-09-17] MEDS: NICOTINE 7 MG/24 HR TDSY TD SCH (07:44)
[2018-09-17] MEDS: MULTIVITAMIN TAB PO SCH (07:44)
[2018-09-17] MEDS: METOPROLOL TARTRATE 25 MG TAB PO SCH ×2 (07:44→20:22)
--- NOTE | 2018-09-17 09:45 | Hospitalist Progress Note ---
Date of Service September 17, 2018 Assessment & Plan (1) Sepsis: Secondary to bacteremia and UTI, E. coli Afebrile since yesterday, leukocytosis further improving Urine culture: Positive for E. coli, sensitive to ceftriaxone Blood cultures: E. coli sensitive to ceftriaxone Mental status significantly improved, clinically overall improved On ceftriaxone 2 g IV daily today -antibiotic #4 Continue gentle IV fluids ID consulted for antibiotic recommendations Hyponatremia Likely hypovolemic Was given IV NSS, sodium improved to 136 Monitor ARF secondary to clinical dehydration, sepsis Creatinine improved from 1.3-1.14 Remains stable Continue gentle IV fluids Monitor closely Hypertension EKG showing PVCs Metoprolol 12.5 mg p.o. twice daily started Blood pressure still not at goal, will add amlodipine 5 mg p.o. daily Monitor blood pressure Elevated d-dimer Not hypoxic, not tachycardic at this time Doppler ultrasound of bilateral legs: No DVTs Noted d-dimer likely secondary to underlying sepsis and UTI troponin elevation Likely secondary to secondary to sepsis Denies chest pain or cardiac symptoms EKG no signs of acute ischemia Troponin trended down from 0.25 to 0.13 Echocardiogram: No left ventricular wall motion abnormalities Ongoing tobacco abuse Smoking cessation counseling Nicotine patch DVT prophylaxis. Heparin subcu Full code Case discussed with patient She is comfortable and agreeable with plan of care Subjective Follow-up for sepsis, E. coli bacteremia UTI Seen resting in bed, awake and alert, in good spirits next States that she feels much better today overall next Denies nausea, vomiting, fevers chills, dysuria, abdominal pain Tolerating diet well Denies other symptoms Review of Systems Review of Systems: All systems reviewed & are unremarkable except as noted in HPI & below Physical Exam Physical Exam: General- oriented x 3, not in distress, speaks in sentences with no effort or accessory muscle use Eyes- anicteric Neck- no JVD Lungs- clear BS BL Heart- normal rate, regular rhythm; no murmurs Abdomen- normal bowel sounds, nondistended, soft, nontender No CVA tenderness Extremities- no pretibial edema, no calf tenderness Neuro- alert, oriented x 3; no other gross new focal neurologic deficit Skin- warm & dry Results & Data Vital Signs (Past 12 Hours) Vital Signs Temp Pulse Pulse Resp BP Pulse Ox 09/17/18 08:00 80 09/17/18 07:00 37.4 C 79 18 164/72 H 94 09/17/18 04:00 37.0 C 80 18 155/84 H 97 09/17/18 02:00 84 09/17/18 01:30 74 175/86 H 09/16/18 23:00 36.7 C 79 16 180/95 H 94 Laboratory Results Laboratory Results - last 24 hr 09/17/18 09/17/18 05:22 05:25 WBC 12.97 H RBC 3.73 L Hgb 11.6 L Hct 34.3 L MCV 92.0 MCH 31.1 MCHC 33.8 RDW Std Deviation 50.2 H RDW Coeff of Amanda 14.8 H Plt Count 190 MPV 10.2 Sodium 136 Potassium 4.3 Chloride 107 Carbon Dioxide 24 Anion Gap 5.0 BUN 24 H Creatinine 0.77 Est Cr Clr Drug Dosing 50.1 Est GFR ( Amer) 90.0 Est GFR (Non-Af Amer) 77.7 BUN/Creatinine Ratio 31.5 H Glucose 85 Calcium 8.6
[2018-09-17 10:01] LABS: Potassium 4.3 mmol/L (3.5-5.1)
[2018-09-17 10:02] LABS: BUN Creatinine Ratio 31.5 (10-20); Calcium 8.6 mg/dl (8.5-10.1); Creatinine Clr Calc Pharmacy 50.1 ml/min; Est GFR (Non-African American) 77.7
[2018-09-17] MEDS: SODIUM CHLORIDE 0.9% 1000ML 1,000 ML IV SCH (10:53)
[2018-09-17] MEDS ORDERED: AMLODIPINE BESYLATE 5 MG TAB PO ONE (15:47)
[2018-09-17] MEDS: cefTRIAXone SODIUM 2,000 MG in DEXTROSE 5% 50 ML IV SCH (18:09)
[2018-09-17] MEDS ORDERED: CALCIUM CARBONATE 500 MG CHEWABLE TAB PO PRN (20:16)
[2018-09-18] MEDS: SODIUM CHLORIDE 0.9% 1000ML 1,000 ML IV SCH (04:08)
[2018-09-18] MEDS: HEPARIN SOD 5,000 UNIT/0.5 ML VIAL SQ SCH (06:01)
[2018-09-18] MEDS: METOPROLOL TARTRATE 25 MG TAB PO SCH (07:52)
[2018-09-18] MEDS: prednisoLONE acetate 1% OP SUSP 5 ML BTL OP SCH (07:52)
[2018-09-18] MEDS: NICOTINE 7 MG/24 HR TDSY TD SCH (07:52)
[2018-09-18] MEDS: MULTIVITAMIN TAB PO SCH (07:53)
[2018-09-18] MEDS: KETOROLAC 0.5% OP SOLN 5 ML BTL OPR SCH (07:53)
[2018-09-18] MEDS ORDERED: AMLODIPINE BESYLATE 5 MG TAB PO SCH (09:00)
--- NOTE | 2018-09-18 10:09 | Infectious Disease Consult ---
Date of Consultation September 18, 2018 Assessment & Plan (1) E. coli sepsis: will repeat blood cultures. would suggest 14 days abx, she can continue on rocephin while in hospital and transition to Keflex 500mg po tid to complete 14 day course. No contraindication to d/c from ID standpoint when otherwise stable. (2) UTI (urinary tract infection): History of Present Illness Attending Physician: Walter Melendez MD pt admitted with dysuria, weakness and confusion, initially evaluated at urgent care and sent to ER with tachycardia. was found to have fever in ER 38.1 and had wbc of 24. Ua with >30 wbc and +1 bacteria. Blood and urine cultures obtained in ER, both growing trimble sensitive E. coli. no repeat cultures done, echo negative for veg. wbc improved to 12. creat normal. CXR no infiltrate, atelectasis noted. Was started on rocephin, tolerating well. Has been afebrile since admission, mental status improved with abx. Currently she is resting comfortably. Denies f/c. no abd pain, no n/v/d. no dysuria, no cp, sob, cough, eating well. ID consulted for further abx recs. Allergies Allergy/AdvReac Type Severity Reaction Status Date / Time Sulfa (Sulfonamide Allergy Unknown Verified 09/14/18 17:37 Antibiotics) Home Medications Home Medications Medication Instructions Recorded Confirmed Type calcium carbonate [Tums] 200 mg PO TID PRN 09/14/18 09/14/18 History ketorolac 1 drp OPR BID 09/14/18 09/14/18 History multivitamin 1 tab PO QAM 09/14/18 09/14/18 History naproxen sodium [Aleve] 220 mg PO BID PRN 09/14/18 09/14/18 History prednisolone acetate 1 drp OPHTHALMIC (EYE) .QID UD 09/14/18 09/14/18 History Patient History Surgical History History of cataract removal with insertion of prosthetic lens Social History Preferred Language: [place] Communication Ability: Effective [employer] Required: No Beliefs That Will Affect Care: None Current Living Situation: Spouse Other Information That Helps Us Care for You: No Feels Safe at Home: Yes Safety Concerns: Feels Safe At This Time Smoking Status: Current every day smoker Tobacco Type: cigarettes Cigarettes Per Day: 4-5 Do You Dip or Chew Tobacco: No Second Hand Exposure: Yes Tobacco Cessation Education Requested by Patient: Yes Hx Alcohol Use: Yes Hx Substance Use: No Review of Systems Review of Systems: All systems reviewed & are unremarkable except as noted in HPI & below Physical Exam Constitutional: WD/WN, vitals as above Eyes: PERRL, conjunctivae normal, anicteric sclerae ENMT: external ear and nose normal, oropharynx normal Neck: normal visual inspection Respiratory: normal respiratory effort, lungs clear to auscultation Cardiovascular: RRR, no murmur, no edema Gastrointestinal (Abdomen): normal bowel sounds, soft, nontender, no hepatosplenomegaly Musculoskeletal: no cyanosis or clubbing, extremities motor strength 5/5 Skin: no rashes, warm and dry Psychiatric: A+Ox3, euthymic affect Results & Data Vital Signs (Past 12 Hours) Vital Signs Temp Pulse Pulse Resp BP Pulse Ox 09/18/18 08:00 81 09/18/18 07:12 36.7 C 85 16 152/74 H 98 09/18/18 04:00 36.8 C 84 18 132/72 97 09/18/18 00:00 36.8 C 78 18 138/74 97 09/17/18 23:23 82 Laboratory Results Microbiology 09/14/18 20:05 Blood Aerobic Blood Culture - Final Escherichia coli 09/14/18 20:05 Blood Anaerobic Blood Culture - Final Escherichia coli 09/14/18 20:05 Blood Aerobic Blood Culture - Preliminary No growth in Aerobic bottle after 48 hours. 09/14/18 20:05 Blood Anaerobic Blood Culture - Preliminary No growth in Anaerobic bottle after 48 hours. 09/14/18 19:17 Urine,Clean Catch Urine Culture - Final Escherichia coli
--- NOTE | 2018-09-18 11:33 | Hospitalist Progress Note ---
Date of Service September 18, 2018 Assessment & Plan (1) Sepsis: Secondary to bacteremia and UTI, E. coli Afebrile since yesterday, leukocytosis further improving Urine culture: Positive for E. coli, sensitive to ceftriaxone Blood cultures: E. coli sensitive to ceftriaxone Repeat blood cultures dated 09/18/2018: Pending Was on cefepime, transitioned ceftriaxone 2 g IV daily today -given 5 days of antibiotics in hospital Fever and leukocytosis resolved, mental status returned to baseline, clinically much better ID service consulted, Dr. Gonzalez, recommending cephalexin 500 mg 3 times daily x14 days Discharged home today, advise follow-up with PCP in 3 to 5 days Advised to postpone cataract surgery until completion of antibiotic therapy and follow-up with PCP Hyponatremia Likely hypovolemic Was given IV NSS, sodium improved to 136 Resolved ARF secondary to clinical dehydration, sepsis Creatinine improved from 1.3-1.14 Remains stable Continue gentle IV fluids Monitor closely Hypertension Blood pressure noted to be elevated while admitted To systolic 180s EKG showing PVCs Metoprolol 12.5 mg p.o. twice daily started Blood pressure still not at goal, added amlodipine 5 mg p.o. daily Blood pressure improved systolic 130s Monitor blood pressure trend on follow-up with PCP, adjust medications accordingly Patient advised to call primary care physician if with lightheadedness or dizziness or weakness Elevated d-dimer Not hypoxic, not tachycardic at this time Doppler ultrasound of bilateral legs: No DVTs Elevated d-dimer likely secondary to underlying sepsis and UTI Mild troponin elevation Likely secondary to secondary to sepsis Denies chest pain or cardiac symptoms EKG no signs of acute ischemia Troponin trended down from 0.25 to 0.13 Echocardiogram: No left ventricular wall motion abnormalities Ongoing tobacco abuse Smoking cessation counseling Nicotine patch DVT prophylaxis. Heparin subcu Full code Disposition Discharge to home, follow-up with primary care physician in 3 to 5 days Discussed with patient and her at length and in detail They are comfortable and understanding the plan of care Subjective Follow-up for UTI, bacteremia, sepsis Seen resting in bed, comfortable, in good spirits States she feels much better overall, Denies abdominal pain, dysuria or urinary symptoms, fevers or chills Denies headache, dizziness, chest pain, shortness of breath, palpitations Ambulate in the hallways today, no problems She is ready would like to be discharged today Review of Systems Review of Systems: All systems reviewed & are unremarkable except as noted in HPI & below Physical Exam Physical Exam: General- oriented x 3, not in distress, speaks in sentences with no effort or accessory muscle use Eyes- anicteric Neck- no JVD Lungs- clear BS, no crackles, no wheezing bilaterally Heart- normal rate, regular rhythm; no murmurs Abdomen- normal bowel sounds, nondistended, soft, nontender No CVA tenderness Extremities- no pretibial edema, no calf tenderness Neuro- alert, oriented x 3; no gross focal neurologic deficits Skin- warm & dry Results & Data Vital Signs (Past 12 Hours) Vital Signs Temp Pulse Pulse Resp BP Pulse Ox 09/18/18 08:00 81 09/18/18 07:12 36.7 C 85 16 152/74 H 98 09/18/18 04:00 36.8 C 84 18 132/72 97 09/18/18 00:00 36.8 C 78 18 138/74 97
--- NOTE | 2018-09-18 12:01 | Discharge Summary ---
Date of Service September 18, 2018 Admission HPI Per Admitting Provider History obtained from patient, family, and records. Medical history significant for ongoing tobacco abuse. Last few days patient noted nausea, poor appetite, dysuria symptoms without abdominal/flank pain. No fever, no chills. No chest pain, S OB, leg swelling. Little confused than usual as per patient's daughter visiting from [place]. Patient noted dizziness symptoms. Patient noted to be tachycardic at the urgent care center. Patient subsequently directed to the ER. 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 Admission Exam Per Admitting Provider GENERAL: Comfortable, looks younger for stated age, no respiratory distress SKIN: Normal color, warm HEENT: [place] palpebral conjunctivae, no ptosis, dry buccal mucosa NECK : Supple, no tenderness CHEST : CTA, no tenderness HEART : Tachycardic, no obvious murmurs ABDOMEN: Some distention, nontender EXTREMITIES : No LE swelling/tenderness, no other conspicuous deformities noted NEUROLOGIC : Coherent, no facial asymmetry, no other gross focality Principal Diagnosis SEPSIS SECONDARY TO E COLI BACTEREMIA, UTI Discharge Exam General- oriented x 3, not in distress, speaks in sentences with no effort or accessory muscle use Eyes- anicteric Neck- no JVD Lungs- clear BS, no crackles, no wheezing bilaterally Heart- normal rate, regular rhythm; no murmurs Abdomen- normal bowel sounds, nondistended, soft, nontender No CVA tenderness Extremities- no pretibial edema, no calf tenderness Neuro- alert, oriented x 3; no gross focal neurologic deficits Skin- warm & dry Discharge Data Allergies Allergy/AdvReac Type Severity Reaction Status Date / Time Sulfa (Sulfonamide Allergy Unknown Verified 09/14/18 17:37 Antibiotics) Consultations 09/14/18 19:08 ED Decision to Admit Stat 09/17/18 09:37 Consult Infectious Diseases Routine Ordered Studies 09/14/18 18:22 CT head/brain wo con Stat CT head/brain wo con CLINICAL HISTORY: 73 years-old Female with dizziness. Acute dizziness TECHNIQUE: Multiple axial CT images of the head were obtained without contrast. A dose lowering technique was utilized adhering to the principles of ALARA. CT DOSE: 537.48 mGy.cm COMPARISON: None. FINDINGS: No acute intracranial hemorrhage, midline shift, intracranial mass, hydrocephalus, territorial ischemia or abnormal extra-axial collection. Patchy white matter hypodensities suggest chronic microvascular ischemic disease. 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 Cerebral vascular calcifications noted. The calvarium is intact. The paranasal sinuses, mastoid air cells, and middle ear cavities are clear. IMPRESSION: 1. No acute intracranial abnormality. 2. Chronic appearing findings as above. 09/15/18 08:20 US venous doppler LE BI Stat IMPRESSION: No evidence of deep venous thrombus within the bilateral lower extremities. Hospital Course (1) Sepsis: Secondary to bacteremia and UTI, E. coli Urine culture: Positive for E. coli, sensitive to ceftriaxone Blood cultures: E. coli sensitive to ceftriaxone Repeat blood cultures dated 09/18/2018: Pending Was on cefepime, transitioned ceftriaxone 2 g IV daily today -given 5 days of antibiotics in hospital Fever and leukocytosis resolved, mental status returned to baseline, clinically much better ID service consulted, Dr. Gonzalez, recommending cephalexin 500 mg 3 times daily x14 days Discharged home today, advise follow-up with PCP in 3 to 5 days Advised to postpone cataract surgery until completion of antibiotic therapy and follow-up with PCP Hyponatremia Likely hypovolemic Was given IV NSS, sodium improved to 136 Resolved ARF secondary to clinical dehydration, sepsis Creatinine improved from 1.3-1.14 Remained stable Hypertension Blood pressure noted to be elevated while admitted To systolic 180s EKG showing PVCs Metoprolol 12.5 mg p.o. twice daily started Blood pressure still not at goal, added amlodipine 5 mg p.o. daily Blood pressure improved systolic 130s Monitor blood pressure trend on follow-up with PCP, adjust medications accordingly Patient advised to call primary care physician if with lightheadedness or dizziness or weakness Elevated d-dimer Not hypoxic, not tachycardic Doppler ultrasound of bilateral legs: No DVTs Elevated d-dimer likely secondary to underlying sepsis and UTI Mild troponin elevation Likely secondary to secondary to sepsis Denies chest pain or cardiac symptoms EKG no signs of acute ischemia Troponin trended down from 0.25 to 0.13 Echocardiogram: No left ventricular wall motion abnormalities Ongoing tobacco abuse Smoking cessation counseling Nicotine patch Disposition Discharge to home, follow-up with primary care physician in 3 to 5 days Discussed with patient and her at length and in detail They are comfortable and understanding the plan of care Total Time Total Time Spent Total Time Spent (In Minutes): 40 mins Discharge Plan Discharge Items Patient Disposition: Home - Self-Care Reason For Visit: SEPSIS Discharge Diagnosis: SEPSIS SECONDARY TO URINARY TRACT INFECTION, AND BLOODSTREAM INFECTION Discharge Goals: Diagnostic testing Activity: As commented below Activity Comment: Resume activity gradually as tolerated Lifting: Wait until after follow-up appointment Exercise/Sports: Wait until after follow-up appointment Driving/Machine Use Comment: No driving until reevaluation by primary care physician Non-emergency contact: Primary Care Provider Call non-emergency contact if: you have any medication questions, your symptoms worsen and you have a fever Follow-up/Referrals: Ruslan Barr [Primary Care Provider] - Diet: Heart Healthy Addtl Provider Instructions: Please review your new medication list and follow instructions carefully. Include probiotics in a daily diet while on antibiotic course, and at least 1 week after completing antibiotic course. Drink plenty of fluids, keep well-hydrated. Maintain low-salt, low-fat diet. No alcohol, smoking. Please call your primary care physician or return to the ER immediately if with worsening symptoms, Fevers or chills, abdominal pain, nausea vomiting, dizziness or lightheadedness. Prescriptions: New amlodipine [Norvasc] 5 mg Tablet 5 mg PO QAM 30 Days Qty: 30 RF: 2 nicotine 7 mg/24 hr Patch 24 Hour 7 mg transdermal QAM 7 Days Qty: 7 RF: 0 metoprolol tartrate 25 mg Tablet 12.5 mg PO BID 30 Days Qty: 30 RF: 2 cephalexin 500 mg capsule 500 mg PO TID Qty: 42 RF: 0 Continued multivitamin Tablet 1 tab PO QAM RF: 0 ketorolac 0.5 % Drops 1 drp OPR BID RF: 0 prednisolone acetate 1 % Drops,Suspension 1 drp OPHTHALMIC (EYE) .QID UD RF: 0 calcium carbonate [Tums] 200 mg calcium (500 mg) Tablet,Chewable 200 mg PO TID PRN (Reason: Gi Upset) RF: 0 Discontinued naproxen sodium [Aleve] 220 mg Tablet 220 mg PO BID PRN (Reason: Pain) RF: 0 Stand-Alone Forms: [facility] Discharge Orders: Discharge Order (Routine); Ordered 09/18/18 Ordered By: Walter Melendez Admission Data Admit Date/Time: 09/14/18 20:13 Attending Provider: Walter Melendez Admit Provider: Samuel Mckinney Primary Care Provider: Ruslan Barr Other Providers: Samuel Mckinney ; Scarlett Gonzalez Service: Telemetry Medical Other Interventions: Discharge Summary Assessment (RN) Last Done: 09/18/18 12:31 DC Date/Time DO NOT enter until pt leaves facility: 09/18/18 13:13
== END 2018-09-18 13:13 | disposition home or self-care (01) | DRG 872 ==
LOC: ED 16:54 → 2N 20:13